=== PATIENT | male | born 1945 | race Caucasian/White ===

== ENCOUNTER 2017-10-17 09:24 | Outpatient (CLI) | payer MEDICARE ==
--- NOTE | 2017-10-17 11:36 | CT ---
CT CHEST AND ABDOMEN AND PELVIS WITH IV CONTRAST: INDICATIONS: History of recently diagnosed rectal cancer. COMPARISON: CT pelvis from the [facility], dated 09/20/2017. FINDINGS: There is moderate to severe emphysema. There is a tiny, noncalcified, subpleural, sub-4 mm pulmonary nodule seen adjacent to the right minor fissure, on image 35 of series 5. There is a small, focal a reas of subsegmental atelectasis involving the left lower lobe, posteriorly, which may be related to dependent atelectasis. Small calcified granuloma seen within the left upper lobe. No pathologically enlarged lymph node seen within the mediastinal, hilar, or axillary regions. There are coronary artery and thoracic aorta calcifications. There is a small hiatal hernia. There is a 2.4 cm hypodense mass within segment 5 of the right hepatic lobe, on image 68 of series 3. There is a 2.6 cm hypodense mass within segment 8 of the right hepatic lobe, on image 58 of series 3. Subcentimeter hypodensity is seen within segment 7 of the right hepatic lobe, on image 62 of seri es 3. The gallbladder is moderately distended. The pancreas, adrenal glands, spleen, and kidneys are normal appearing. There is a tiny cyst involvi ng the right mid kidney. There are moderate calcifications involving the abdominal aorta. No free fluid or enlarged lymph nodes are evident. There are scattered diverticula involving the colon without evidence of active diverticulitis. The stewart randolph's known rectal mass is poorly detailed on the current CT evaluation. No overt abnormal mesore ctal or pelvic lymphadenopathy is evident. There are healed right lateral fifth and sixth rib fractures. No suspicious osteolytic or osteoblast ic lesion is identified. There is scattered degenerative and osteoarthritic change. IMPRESSION: 1. The patient's known rectal malignancy is not well demonstrated on the current CT evaluation. No definite lymphadenopathy is evident within the pelvis or retroperitoneum. There are hypodense masses involving the liver that are incompletely characterized but, in light of the patient's recent diagno sis, is suspicious for metastatic disease. Further evaluation with CT of the abdomen, utilizing live r mass protocol, may be helpful for improved characterization. 2. Moderate to prominent emphysema. 3. Small hiatal hernia. 4. Sub-4 mm pulmonary nodule within the right upper lobe, adjacent to the right minor fissure. No s uspicious pulmonary nodule identified. 5. Small right renal cyst. 6. Colonic diverticulosis. 7. Prominent vascular calcifications. 8. Healed right fifth and sixth rib fractures. POS: [facility]
== END 2017-10-17 09:25 | disposition home or self-care (01) ==
LOC: SCSCT 09:24
PROVIDERS: ATTEND Internal Medicine
DX: K62.89 Other specified diseases of anus and rectum (principal); C20 Malignant neoplasm of rectum; J43.9 Emphysema, unspecified; K44.9 Diaphragmatic hernia without obstruction or gangrene; R91.1 Solitary pulmonary nodule; K57.30 Diverticulosis of large intestine without perforation or abscess without bleeding; Z87.81 Personal history of (healed) traumatic fracture; I70.90 Unspecified atherosclerosis
CPT/HCPCS: 71260; 74177; 82565

== ENCOUNTER 2018-01-31 10:28 | Outpatient (CLI) | payer MEDICARE ==
[~2018-01-31 10:28] MED LIST: Iopamidol 370 76% 100 ML VIAL ONE
[2018-01-31 11:00] LABS: Estimated GFR-MDRD - POC Greater than 90
--- NOTE | 2018-01-31 13:24 | CT ---
CT ABDOMEN AND PELVIS WITH CONTRAST: HISTORY: Rectal cancer. Radiation chemo treatments. COMPARISON: CT chest, abdomen, and pelvis from 10/17/2017. PET CT from 10/26/2017. FINDINGS: There is mild central lobular emphysema in the lung bases. There is a mass in hepatic segment 8, whi ch is hypodense and measures up to 4.5 cm, previously 2.6 cm. Hepatic segment 4B has a mass that selam sures up to 3.2 cm, previously 2.4 cm. No new hepatic mass is appreciated. The spleen is unremarkable, as well as the adrenal glands. No hydronephrosis. There is stranding within the mesorectal fat, likely post treatment in nature. The known rectal canc er is not well seen on this examination. There is low grade presacral edema. No obturator or iliac adenopathy. No dilated loops of large or small bowel. Moderate diverticular disease of the sigmoid colon without active current inflammation. No acute osseous abnormality. IMPRESSION: 1. Progressive hepatic metastatic disease. 2. Treatment changes in the pelvis with mesorectal fat edema and low grade presacral edema. No new iliac or obturator adenopathy. 3. Small focal saccular ectasia of the infrarenal abdominal aorta, which measures up to 2.7 cm in si ze, without aneurysmal dilatation. 4. Moderate emphysematous changes. POS: [facility]
== END 2018-01-31 10:29 | disposition home or self-care (01) ==
LOC: SCSCT 10:28
PROVIDERS: ATTEND Internal Medicine Hematology & Oncology
DX: C20 Malignant neoplasm of rectum (principal); C78.7 Secondary malignant neoplasm of liver and intrahepatic bile duct; I77.811 Abdominal aortic ectasia; R60.0 Localized edema
CPT/HCPCS: 74177; 82565

== ENCOUNTER 2018-03-20 08:45 | Day surgery (SDC) | payer MEDICARE, OTHER ==
[2018-03-20] MEDS ORDERED: Sodium Chloride 0.9% 20 ML ONE (09:04)
[2018-03-20] MEDS ORDERED: PALONOSETRON HCL 0.05 MG/ML 5 ML VIAL IVP SCH (09:45)
[2018-03-20] MEDS ORDERED: Dexamethasone 10 MG/ML VIAL SLOW IVP SCH (09:45)
[2018-03-20] MEDS ORDERED: SODIUM CHLORIDE 0.9% IVPB SCH (10:00)
[2018-03-20] MEDS ORDERED: BEVACIZUMAB IVPB SCH (10:00)
[2018-03-20] MEDS ORDERED: Leucovorin Calcium 50 MG in Dextrose 5% in Water 50 ML IVPB SCH (10:00)
[2018-03-20] MEDS ORDERED: Fluorouracil 800 MG in Dextrose 5% in Water 50 ML IVPB SCH (10:00)
== END 2018-03-20 18:37 | disposition home or self-care (01) ==
LOC: ONC/OP 08:45
PROVIDERS: ATTEND Internal Medicine Hematology & Oncology
DX: Z51.11 Encounter for antineoplastic chemotherapy (principal); C20 Malignant neoplasm of rectum; C78.7 Secondary malignant neoplasm of liver and intrahepatic bile duct; I10 Essential (primary) hypertension; E78.00 Pure hypercholesterolemia, unspecified; Z87.891 Personal history of nicotine dependence; Z79.84 Long term (current) use of oral hypoglycemic drugs; Z79.899 Other long term (current) drug therapy
CPT/HCPCS: 36415; 80053; 82248; 82378; 83615; 84100; 84550; 99211; G0463; J0640; J1642; J7050; J7070; J9035; J9190; J9263

== ENCOUNTER → 2018-03-26 | Day surgery (SDC) | payer MEDICARE, OTHER ==
[~2018-03-26] MED LIST changes: +BEVACIZUMAB IVPB SCH; +Dexamethasone 10 MG/ML VIAL SLOW IVP SCH; +Fluorouracil 800 MG in Dextrose 5% in Water 50 ML IVPB SCH; -Iopamidol 370 76% 100 ML VIAL ONE; +Leucovorin Calcium 50 MG in Dextrose 5% in Water 50 ML IVPB SCH; +PALONOSETRON HCL 0.05 MG/ML 5 ML VIAL IVP SCH; +SODIUM CHLORIDE 0.9% IVPB SCH; +Sodium Chloride 0.9% 20 ML ONE
[2018-03-26 14:08] VITALS: BP 168/78; TEMP 98.1
== END ==
LOC: ONC/OP 09:50
PROVIDERS: ATTEND Internal Medicine Hematology & Oncology
DX: Z51.11 Encounter for antineoplastic chemotherapy (principal); C20 Malignant neoplasm of rectum; I10 Essential (primary) hypertension; E78.00 Pure hypercholesterolemia, unspecified; Z86.010 Personal history of colon polyps; Z87.891 Personal history of nicotine dependence; Z79.84 Long term (current) use of oral hypoglycemic drugs; Z79.899 Other long term (current) drug therapy; Z98.890 Other specified postprocedural states
CPT/HCPCS: 96366; 96375; 96413; 96415; 96416; 96417; J0640; J1100; J1642; J2469; J7050; J7070; J9035; J9190; J9263

== ENCOUNTER 2018-04-09 01:07 | Day surgery (SDC) | payer MEDICARE, OTHER ==
[2018-04-09] MEDS ORDERED: Fluorouracil 800 MG in Dextrose 5% in Water 50 ML IVPB SCH (01:30)
[2018-04-09] MEDS ORDERED: PALONOSETRON HCL 0.05 MG/ML 5 ML VIAL IVP SCH (01:30)
[2018-04-09] MEDS ORDERED: SODIUM CHLORIDE 0.9% IVPB SCH (01:30)
[2018-04-09] MEDS ORDERED: BEVACIZUMAB IVPB SCH (01:30)
[2018-04-09] MEDS ORDERED: Leucovorin Calcium 50 MG in Dextrose 5% in Water 50 ML IVPB SCH (01:30)
[2018-04-09] MEDS ORDERED: Dexamethasone 10 MG/ML VIAL SLOW IVP SCH (01:30)
[2018-04-09] MEDS ORDERED: Sodium Chloride 0.9% 20 ML ONE (08:31)
[2018-04-09 08:40] VITALS: BP 166/80; TEMP 97.7
== END 2018-04-09 13:58 | disposition home or self-care (01) ==
LOC: ONC/OP 01:07
PROVIDERS: ATTEND Internal Medicine Hematology & Oncology
DX: Z51.11 Encounter for antineoplastic chemotherapy (principal); C20 Malignant neoplasm of rectum; I10 Essential (primary) hypertension; E78.00 Pure hypercholesterolemia, unspecified; Z79.84 Long term (current) use of oral hypoglycemic drugs; Z79.899 Other long term (current) drug therapy; Z98.890 Other specified postprocedural states
CPT/HCPCS: 96367; 96375; 96413; 96415; 96417; J0640; J1100; J2469; J7050; J7070; J9035; J9190; J9263

== ENCOUNTER 2018-04-30 09:13 | Day surgery (SDC) | payer MEDICARE, OTHER ==
[~2018-04-30 09:13] MED LIST changes: -Sodium Chloride 0.9% 20 ML ONE
[2018-04-30] MEDS ORDERED: Sodium Chloride 0.9% 20 ML ONE (09:20)
[2018-04-30 12:32] VITALS: BP 160/77; TEMP 97.6
== END 2018-04-30 12:55 | disposition home or self-care (01) ==
LOC: ONC/OP 09:13
PROVIDERS: ATTEND Internal Medicine Hematology & Oncology
DX: Z51.11 Encounter for antineoplastic chemotherapy (principal); C20 Malignant neoplasm of rectum; I10 Essential (primary) hypertension; E78.00 Pure hypercholesterolemia, unspecified; Z87.891 Personal history of nicotine dependence
CPT/HCPCS: 96367; 96375; 96413; 96416; 96417; J0640; J1100; J2469; J7050; J7070; J9035; J9190; J9263

== ENCOUNTER 2018-05-07 11:11 | Day surgery (SDC) | payer MEDICARE, OTHER ==
[2018-05-07] MEDS ORDERED: Sodium Chloride 0.9% 20 ML ONE (11:20)
[2018-05-07 11:45] VITALS: BP 124/88; TEMP 98.5
== END 2018-05-07 15:12 | disposition home or self-care (01) ==
LOC: ONC/OP 11:11
PROVIDERS: ATTEND Internal Medicine Hematology & Oncology
DX: Z51.11 Encounter for antineoplastic chemotherapy (principal); C20 Malignant neoplasm of rectum; I10 Essential (primary) hypertension; E78.00 Pure hypercholesterolemia, unspecified; Z86.010 Personal history of colon polyps; Z87.891 Personal history of nicotine dependence; Z79.84 Long term (current) use of oral hypoglycemic drugs; Z79.899 Other long term (current) drug therapy
CPT/HCPCS: 96375; 96413; 96415; 96416; 96417; J0640; J1100; J2469; J7050; J7070; J9035; J9190; J9263

== ENCOUNTER 2018-05-28 08:56 | Day surgery (SDC) | payer MEDICARE, OTHER ==
[~2018-05-28 08:56] MED LIST changes: +Dexamethasone 10 MG in Sodium Chloride 0.9% 50 ML IVPB SCH; +Palonosetron HCl 0.25 MG in Sodium Chloride 0.9% 50 ML IVPB SCH
[2018-05-28] MEDS ORDERED: Sodium Chloride 0.9% 20 ML ONE (09:22)
[2018-05-28 14:32] VITALS: BP 177/90; TEMP 97.7
== END 2018-05-28 14:32 | disposition home or self-care (01) ==
LOC: ONC/OP 08:56
PROVIDERS: ATTEND Internal Medicine Hematology & Oncology
DX: Z51.11 Encounter for antineoplastic chemotherapy (principal); C20 Malignant neoplasm of rectum; Z79.84 Long term (current) use of oral hypoglycemic drugs; Z79.899 Other long term (current) drug therapy
CPT/HCPCS: 96367; 96375; 96413; 96415; 96417; J0640; J1100; J2469; J7050; J7070; J9035; J9190; J9263

== ENCOUNTER 2018-06-18 08:30 | Day surgery (SDC) | payer MEDICARE, OTHER ==
[~2018-06-18 08:30] MED LIST changes: -Dexamethasone 10 MG/ML VIAL SLOW IVP SCH; -PALONOSETRON HCL 0.05 MG/ML 5 ML VIAL IVP SCH
[2018-06-18] MEDS ORDERED: Sodium Chloride 0.9% 20 ML ONE (08:59)
[2018-06-18 09:34] VITALS: BP 160/79; TEMP 97.7
== END 2018-06-18 14:55 | disposition home or self-care (01) ==
LOC: ONC/OP 08:30
PROVIDERS: ATTEND Internal Medicine Hematology & Oncology
DX: Z51.11 Encounter for antineoplastic chemotherapy (principal); C20 Malignant neoplasm of rectum
CPT/HCPCS: 96375; 96413; 96415; J0640; J1100; J2469; J3490; J7050; J7070; J9035; J9190; J9263

== ENCOUNTER 2018-07-23 08:59 | Day surgery (SDC) | payer MEDICARE, OTHER ==
[~2018-07-23 08:59] MED LIST changes: -Dexamethasone 10 MG in Sodium Chloride 0.9% 50 ML IVPB SCH
[2018-07-23 09:56] VITALS: BP 174/99; TEMP 98.6
== END 2018-07-23 15:44 | disposition home or self-care (01) ==
LOC: ONC/OP 08:59
PROVIDERS: ATTEND Internal Medicine Hematology & Oncology
DX: Z51.11 Encounter for antineoplastic chemotherapy (principal); C20 Malignant neoplasm of rectum; Z79.84 Long term (current) use of oral hypoglycemic drugs; Z79.899 Other long term (current) drug therapy
CPT/HCPCS: 96367; 96375; 96413; 96415; 96416; 96417; J0640; J1100; J2469; J3490; J7050; J7070; J9035; J9190; J9263

== ENCOUNTER 2018-08-13 08:51 | Day surgery (SDC) | payer MEDICARE, OTHER ==
[2018-08-13] MEDS ORDERED: Sodium Chloride 0.9% 30 ML ONE (09:05)
[2018-08-13 09:24] VITALS: BP 192/91; TEMP 98
== END 2018-08-13 16:09 | disposition home or self-care (01) ==
LOC: ONC/OP 08:51
PROVIDERS: ATTEND Internal Medicine Hematology & Oncology
DX: Z51.11 Encounter for antineoplastic chemotherapy (principal); C20 Malignant neoplasm of rectum
CPT/HCPCS: 96366; 96375; 96413; 96415; 96416; 96417; J0640; J1100; J2469; J3490; J7070; J9035; J9190; J9263

== ENCOUNTER 2018-09-03 09:54 | Day surgery (SDC) | payer MEDICARE, OTHER ==
[2018-09-03] MEDS ORDERED: Sodium Chloride 0.9% 20 ML ONE (10:02)
[2018-09-03 11:24] VITALS: BP 157/81; TEMP 98.3
== END 2018-09-03 15:57 | disposition home or self-care (01) ==
LOC: ONC/OP 09:54
PROVIDERS: ATTEND Internal Medicine Hematology & Oncology
DX: Z51.11 Encounter for antineoplastic chemotherapy (principal); C20 Malignant neoplasm of rectum
CPT/HCPCS: 36415; 80053; 82248; 82378; 83615; 84100; 84550; 96367; 96375; 96413; 96415; 96417; J0640; J1100; J2469; J3490; J7070; J9035; J9190; J9263

== ENCOUNTER 2018-09-20 07:30 | Outpatient (CLI) | payer MEDICARE, OTHER ==
[2018-09-20] MEDS ORDERED: Iopamidol 300 61% 100 ML VIAL FS ONE (09:00)
--- NOTE | 2018-09-20 09:15 | CT ---
EXAM: CT ABDOMEN AND PELVIS HISTORY: Rectal cancer. Evaluate for response to chemotherapy. COMPARISON: 10/17/2017, 01/31/2018 Correlation: Pet imaging 10/26/2017 Procedure: Multiple contiguous axial images were obtained and a CT of the abdomen and pelvis with IV contrast. C oronal reformats were performed. FINDINGS: Lower Chest: within normal limits. Vessels: Visualized aorta is unremarkable. Heart: Normal heart size. No pericardial fluid Abdomen: Portal vein:Patent Gallbladder: No calcified gallstones. Normal caliber wall. Liver: Stable calcification of the hepatic parenchyma near the hepatic dome. Redemonstration of an il l-defined hypodense mass in the anterior segment of the right hepatic lobe, currently measuring 3.0 x 4.1 cm (previously measuring 4.5 x 4.0 cm). Redemonstration of a second hypodensity in the hepatic parenchyma, adjacent to the falciform ligament currently measuring 2.3 x 1.9 cm (previously measuring 2.8 x 2.2 cm). Stable hypodensity in the posterior segment of the right hepatic lobe, too s mall to characterize. Pancreas: within normal limits. Spleen: within normal limits. Adrenals: within normal limits. Kidneys: Symmetric enhancement. No obstructive Peritoneum: No ascites or free air, no fluid collection. Bowel: Gastric mucosa, duodenum and multiple normal caliber small bowel loops. Ileocecal junction is unremarkable. Cecum, ascending colon and transverse colon are unremarkable. The descending colon is also unremarkable. Scattered diverticula in the left hemicolon. This mucosal thickening involving the proximal mid and distal sigmoid colon, as well as the rectum. The possibility of underlying mass lesion in this region cannot be excluded. The degree of mucosal thickening appears to have progressed . Direct visualization is recommended. Mesentery and Retroperitoneum: No enlarged mesenteric or retroperitoneal lymph nodes. Abdominal Wall: Stable umbilical hernia containing mesenteric fat. Pelvis: Reproductive Organs: No pelvic masses. Pelvis: So mass, lymphadenopathy, free air or free fluid. Stranding of the pelvic fat likely due to p osttreatment change. Bladder: Mucosal prominence the urinary bladder likely due to inadequate distention. Bones: within normal limits. IMPRESSION: 1. There is evidence for partial response to therapy. The hepatic metastatic lesions have slightly de creased in size. 2. Stable posttreatment change in the pelvis. 3. Possible mucosal thickening of the rectum as well as the proximal to mid sigmoid colon. Direct vis ualization recommended. 4. Diverticulosis of the left hemicolon, without evidence of colitis.
== END 2018-09-20 07:31 | disposition home or self-care (01) ==
LOC: SCSCT 07:30
PROVIDERS: ATTEND Internal Medicine Hematology & Oncology
DX: C20 Malignant neoplasm of rectum (principal); K57.10 Diverticulosis of small intestine without perforation or abscess without bleeding
CPT/HCPCS: 74177; Q9967

== ENCOUNTER 2018-09-24 09:18 | Day surgery (SDC) | payer MEDICARE ==
[2018-09-24] MEDS ORDERED: Sodium Chloride 0.9% 20 ML ONE (09:26)
== END 2018-09-24 16:47 | disposition home or self-care (01) ==
LOC: ONC/OP 09:18
PROVIDERS: ATTEND Internal Medicine Hematology & Oncology
DX: Z51.11 Encounter for antineoplastic chemotherapy (principal); C20 Malignant neoplasm of rectum
CPT/HCPCS: 96367; 96375; 96413; 96415; 96417; J0640; J1100; J2469; J3490; J7070; J9035; J9190; J9263

== ENCOUNTER 2019-03-29 10:05 | Outpatient (CLI) | payer MEDICARE ==
--- NOTE | 2019-03-29 10:54 | RAD ---
XR Thoracic Spine 3 V STANDARD History: Thoracic radiculitis Comparison: None. Findings: Port catheter tip sits at the inferior SVC. No acute fracture or malalignment. Posterior ri bs are intact. Impression: No acute abnormality of the thoracic spine.
--- NOTE | 2019-03-29 10:55 | RAD ---
XR Cerv Sp Ap Lat STANDARD History: [place] 54.12 cervical radicular pain Comparison: None. Findings: Bilateral radiographic images of the cervical spine are limited due to overlying shoulder s hadows. High-grade degenerative disc space disease at C5/C6 and C6/C7 with circumferential disc osteophyte complexes. No acute fracture. No significant listhesis. No abnormal translation with flexion or extension apprec iated. Paraspinal soft tissues are unremarkable. Impression: Advanced spondylosis lower cervical spine without significant translation with flexion or extension.
== END 2019-03-29 10:06 | disposition home or self-care (01) ==
LOC: RAD 10:05
PROVIDERS: ATTEND Nurse Practitioner Family
DX: M47.22 Other spondylosis with radiculopathy, cervical region (principal); M54.14 Radiculopathy, thoracic region
CPT/HCPCS: 72040; 72072

== ENCOUNTER 2019-04-23 08:57 | Outpatient (CLI) | payer MEDICARE ==
--- NOTE | 2019-04-23 11:26 | CT ---
CT THORACIC SPINE WITHOUT CONTRAST: INDICATION: History of disorder of the bone and colon cancer. COMPARISON: Prior CT of the abdomen and pelvis dated September 20, 2018, and a CT the chest, abdomen and pelvis dated October 09, 2017. FINDINGS: There are new scattered pulmonary nodules within the lungs. One is seen on image 13 of series 2 in th e left upper lobe measuring 2.5 mm. There is a 7 mm pulmonary nodule in the left lower lobe image 48 of series 2. There is a 1 cm pulmonary nodule and 5 mm pulmonary nodule within the posterior media l aspect of the left lower lobe on image 63 of series 2. There is a 4 mm pulmonary nodule within the posterior lateral right lower lobe on image 49 of series 2. There is scattered emphysema. There are multiple new hypodense masses in the liver consistent with worsening metastatic disease of the liver. There is prominent expansile osteolysis involving the spinous process of T10 extending into the pedic les and lamina of T10 and the posterior aspect of the T10 vertebral body. There is also osteolysis involving the right 10th rib head. There is a prominent paraspinal soft tissue mass seen adjacent to the right posterior lateral aspect of the T10 vertebral body measuring approximately 9.0 x 5.7 cm. There is suspicion for a large extraosseous soft tissue mass component involving the spinal canal at T10 which may be causing some compression of the thoracic spinal cord. This is most suspicious on image 62 of series 2. There is a pathologic central wedge compression fracture of T10 with approximat [place] 25% loss of total height centrally. No additional acute fracture is demonstrated. There is mild multilevel spondylosis of the thoracic spine. IMPRESSION: 1. Interval development of osseous metastatic disease to the T10 vertebral level with prominent poste rior paraspinal soft tissue mass causing some encroachment on the spinal canal at T10 raising suspicion for underlying mass effect on the spinal cord. Follow-up MRI of the thoracic spine with and without contrast is recommended for additional characterization. There is also pathologic compression fracture involving T10 of both the superior and inferior endplates with approximately 25% loss of height. 2. Pulmonary metastatic disease. 3. Worsening hepatic metastatic disease. Findings called to Dr. Henry at 11:22 AM on 04/23/2019. Transcribed Date/Time: 04/23/2019 11:35 AM
== END 2019-04-23 08:58 | disposition home or self-care (01) ==
LOC: CT 08:57
PROVIDERS: ATTEND Nurse Practitioner Family
DX: M89.8X9 Other specified disorders of bone, unspecified site (principal); C79.51 Secondary malignant neoplasm of bone; M84.48XA Pathological fracture, other site, initial encounter for fracture; M79.89 Other specified soft tissue disorders; C78.00 Secondary malignant neoplasm of unspecified lung; C78.7 Secondary malignant neoplasm of liver and intrahepatic bile duct; C80.1 Malignant (primary) neoplasm, unspecified
CPT/HCPCS: 72128

== ENCOUNTER 2019-04-30 09:50 | Outpatient (CLI) | payer MEDICARE ==
--- NOTE | 2019-04-30 13:54 | NM ---
Radionucleotide bone scan HISTORY: Thoracic spine mass. Metastatic disease. Colon cancer. FINDINGS: Physiologic uptake of radiotracer throughout the skeleton. Degenerative type uptake at the acromioclavicular joints and knees. At the T10 level of the spine, there is an ill-defined area of decreased radiotracer uptake. It is hirsch rrounded by a subtle area of increased activity within the adjacent soft tissues. It correlates with the abnormality on recent CT scan. No areas of abnormally increased uptake evident. No other foc al abnormalities apparent. IMPRESSION: Photopenic defect in the area of large destructive mass at the T10 vertebra. Consistent w ith osteolytic mass/metastasis. Bone scan does not well evaluate for osteolytic disease. There is no evidence of osteoblastic metasta sis on this exam.
== END 2019-04-30 09:51 | disposition home or self-care (01) ==
LOC: CT 09:50 → NM 09:51
PROVIDERS: ATTEND Nurse Practitioner Family
DX: M89.8X9 Other specified disorders of bone, unspecified site (principal)
CPT/HCPCS: 78306; A9503